=== PATIENT | female | born 1970 | race Caucasian/White ===

== ENCOUNTER 2020-04-27 13:15 | Outpatient (REF) | payer MEDICARE, MEDICAID, SELFPAY ==
[2020-04-27 22:10] LABS: Abs Immature Grans 0.02 10^3/uL (0.0-0.06); Absolute Basophil Count 0.07 10^3/uL (0.0-0.2); Absolute Eosinophil Count 0.13 10^3/uL (0.0-0.7); Absolute Lymphocyte Count 2.68 10^3/uL (1.2-3.4); Absolute Monocyte Count 0.53 10^3/uL (0.1-0.8); Absolute Neutrophil Count 3.26 10^3/uL (1.2-6.7); Eosinophils % 1.9; HCT 42.6 % (36.0-46.0); HGB 14.4 g/dL (11.2-15.7); Immature Grans % 0.3; Lymphocytes % 40.1; MCH 33.4 pg (27.0-33.0); MCHC 33.8 % (32.0-36.0); MCV 98.8 fL (80-95); MPV 9.2 fL (8.0-11.0); Monocytes % 7.9; Neutrophils % 48.8; Nucleated RBC 0 %; Platelet Count 345 10^3/uL (130-400); RBC 4.31 10^6/uL (3.93-5.22); RDW 13.5 % (11.7-14.6); RDW-SD 49.6 fL; WBC 6.69 10^3/uL (4.4-10.8)
[2020-04-27 22:24] LABS: Anion Gap 8.8 mmol/L (3-11); BUN 7 mg/dL (7-18); CO2 29.2 mmol/L (21.0-32.0); CREATININE 0.7 mg/dL (0.55-1.02); Calcium 9.2 mg/dL (8.5-10.1); Chloride 102 mmol/L (98-107); Glucose 75 mg/dL (74-106); Potassium 4.3 mmol/L (3.5-5.1); Sodium 140 mmol/L (136-145)
== END 2020-04-27 13:16 | disposition home or self-care (01) ==
LOC: NCHCN 13:15
PROVIDERS: Visit Provider Nurse Practitioner Community Health
DX: L04.8 Acute lymphadenitis of other sites (principal); Z51.81 Encounter for therapeutic drug level monitoring
CPT/HCPCS: 80048; 85025

== ENCOUNTER 2020-06-23 15:07 | Outpatient (REF) | payer MEDICARE, MEDICAID, SELFPAY ==
[2020-06-23 14:01] LABS: ALT 19 U/L (14-59); AST 16 U/L (15-37); Albumin 4.8 g/dL (3.4-5.0); Alkaline Phosphatase 53 U/L (46-116); BUN 14 mg/dL (7-18); Bilirubin, Total 0.6 mg/dL (0.2-1.0); Calcium 9.9 mg/dL (8.5-10.1); Chloride 100 mmol/L (98-107); Estimated GFR 59.18 (mL/min/1.73m2); Ferritin 464 ng/mL (8-252); Glucose 111 mg/dL (74-106); Sodium 141 mmol/L (136-145); TSH (W/Ref FT4) 1.72 uIU/mL (0.36-3.74); Vitamin B12 1216 pg/mL (193-986)
== END 2020-06-23 15:08 | disposition home or self-care (01) ==
LOC: NCHCN 15:07
PROVIDERS: Visit Provider Nurse Practitioner Community Health
DX: R11.0 Nausea (principal)
CPT/HCPCS: 80053; 82607; 82728; 84443

== ENCOUNTER 2020-11-21 14:41 | Outpatient (REF) | payer MEDICARE, MEDICAID, SELFPAY ==
[2020-11-21 14:33] LABS: Abs Immature Grans 0.01 10^3/uL (0.0-0.06); Absolute Basophil Count 0.06 10^3/uL (0.0-0.2); Absolute Eosinophil Count 0.19 10^3/uL (0.0-0.7); Absolute Lymphocyte Count 1.92 10^3/uL (1.2-3.4); Absolute Monocyte Count 0.44 10^3/uL (0.1-0.8); Absolute Neutrophil Count 2.29 10^3/uL (1.2-6.7); Basophils % 1.2; Eosinophils % 3.9; HCT 39.6 % (36.0-46.0); HGB 12.7 g/dL (11.2-15.7); Immature Grans % 0.2; Lymphocytes % 39.1; MCH 32.5 pg (27.0-33.0); MCHC 32.1 % (32.0-36.0); MCV 101.3 fL (80-95); MPV 9.1 fL (8.0-11.0); Neutrophils % 46.6; Nucleated RBC 0 %; Platelet Count 388 10^3/uL (130-400); RBC 3.91 10^6/uL (3.93-5.22); RDW 14.4 % (11.7-14.6); RDW-SD 54.4 fL; WBC 4.91 10^3/uL (4.4-10.8)
[2020-11-21 15:34] LABS: ALT 34 U/L (14-59); AST 25 U/L (15-37); Albumin 3.8 g/dL (3.4-5.0); Alkaline Phosphatase 53 U/L (46-116); Anion Gap 8.8 mmol/L (3-11); BUN 6 mg/dL (7-18); Bilirubin, Total 0.3 mg/dL (0.2-1.0); CO2 29.2 mmol/L (21.0-32.0); CREATININE 0.8 mg/dL (0.55-1.02); Calcium 8.9 mg/dL (8.5-10.1); Chloride 104 mmol/L (98-107); Ferritin 148 ng/mL (8-252); Glucose 84 mg/dL (74-106); Potassium 4.4 mmol/L (3.5-5.1); Sodium 142 mmol/L (136-145); Total Protein 6.6 g/dL (6.4-8.2); Vitamin B12 341 pg/mL (193-986)
== END 2020-11-21 14:42 | disposition home or self-care (01) ==
LOC: NCHCN 14:41
PROVIDERS: Nurse Practitioner Community Health; Visit Provider Nurse Practitioner Family
DX: R78.89 Finding of other specified substances, not normally found in blood (principal); E53.8 Deficiency of other specified B group vitamins; R23.8 Other skin changes
CPT/HCPCS: 80053; 82607; 82728; 85025

== ENCOUNTER 2020-12-12 15:31 | Outpatient (REF) | payer MEDICARE, MEDICAID, SELFPAY ==
[2020-12-14 14:30] LABS: COVID-19 RT-PCR UVMMC Result Negative (Negative)
== END 2020-12-12 15:32 | disposition home or self-care (01) ==
LOC: NCHCN 15:31
PROVIDERS: Visit Provider Nurse Practitioner Community Health
DX: Z20.822 Contact with and (suspected) exposure to COVID-19 (principal); R05.8 Other specified cough
CPT/HCPCS: U0003